=== PATIENT | male | born 1970 | race American Indian/Alaskan Native ===

== ENCOUNTER 2016-11-08 15:53 | Emergency (ER) | payer MEDICAID ==
[2016-11-08 16:04] VITALS: TEMP 97.9
[2016-11-08] MEDS ORDERED: Sodium Chloride 0.9% 1,000 ML IV ONE (16:20)
--- NOTE | 2016-11-08 16:33 | C.PDOC ---
History Of Present Illness 46 y/o male with Hx of HTN, DM and reflux presents to ED with complaints of feeling dizzy and weak with associated numbness feeling to back for 1 week. 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 Patient states he was seen at clinic recently for discharge from penis and had blood work and urine labs done. Patient admits to not eating until late today and denies fever,chills, loc, headache, nausea, vomiting or any other complaints at this time. Time Seen by Provider: 11/08/16 16:18 Chief Complaint (Nursing): Weakness/Neurological Deficit History Per: Patient History/Exam Limitations: no limitations Onset/Duration Of Symptoms: Days Current Symptoms Are (Timing): Still Present Activity At Onset Of Symptoms: Walking Possible Causative Factor(s): New Medications, Decreased PO Intake Recent travel outside of the [place]: No Past Medical History Reviewed: Historical Data, Nursing Documentation, Vital Signs Vital Signs: Last Vital Signs Temp 97.9 F 11/08/16 18:01 Pulse 85 11/08/16 18:01 Resp 18 11/08/16 18:01 BP 108/64 11/08/16 18:01 Pulse Ox 97 11/08/16 18:01 - Medical History PMH: HTN Surgical History: Tonsillectomy Family History: States: No Known Family Hx - Social History Hx Alcohol Use: Yes Hx Substance Use: No - Immunization History Hx Influenza Vaccination: No Review Of Systems Except As Marked, All Systems Reviewed And Found Negative. Constitutional: Negative for: Fever, Chills Cardiovascular: Negative for: Chest Pain Respiratory: Negative for: Shortness of Breath Gastrointestinal: Negative for: Nausea, Vomiting Skin: Negative for: Rash Neurological: Positive for: Numbness, Dizziness. Negative for: Headache Physical Exam - Physical Exam Appears: Non-toxic, No Acute Distress Skin: Normal Color, Warm, Dry, No Rash Head: Atraumatic, Normacephalic Eye(s): bilateral: Normal Inspection, PERRL, EOMI Oral Mucosa: Moist Neck: Normal ROM, Supple Chest: Symmetrical Cardiovascular: Rhythm Regular Respiratory: Normal Breath Sounds, No Rales, No Rhonchi, No Wheezing Extremity: Normal ROM, Capillary Refill (<2 seconds) Neurological/Psych: Oriented x3, Normal Speech, Normal Cognition, Normal Motor, Normal Sensation Gait: Steady ED Course And Treatment - Laboratory Results Result Diagrams: 11/08/16 16:44 11/08/16 16:44 Lab Interpretation: Normal ECG: Interpreted By Me ECG Rhythm: Sinus Rhythm ECG Interpretation: Normal Rate From EC O2 Sat by Pulse Oximetry: 98 (RA) Pulse Ox Interpretation: Normal Progress Note: Patient refused CT Head. Treated with IVF NSS. On re- evaluation feeling better, requestd discharge. ambulating with steady gait, neuro intact Reassessment Condition: Improved Medical Decision Making Medical Decision Making: Plan: * CT head * IV fluids Disposition Counseled Patient/Family Regarding: Studies Performed, Diagnosis, Need For Followup - Disposition Disposition: HOME/ ROUTINE Disposition Time: 18:00 Condition: IMPROVED Additional Instructions: Follow up with your PMD Eat 3 meals a day talk to your doctor about taking diet pills Instructions: Weakness (ED) Forms: [facility] (Kazakh), Work Excuse - POA Present On Arrival: None - Clinical Impression Clinical Impression: Weakness - Scribe Statement The provider has reviewed the documentation as recorded by the Shiloibpancho Beasley All medical record entries made by the Shiloibpancho were at my direction and personally dictated by me. I have reviewed the chart and agree that the record accurately reflects my personal performance of the history, physical exam, medical decision making, and the department course for this patient. I have also personally directed, reviewed, and agree with the discharge instructions and disposition.
[2016-11-08 16:47] LABS: BASO % 0.9 % (0.0-2.0); EOS # 0.1 K/uL (0.0-0.7); EOS % 1.9 % (0.0-4.0); HEMATOCRIT 40.5 % (35.0-51.0); LYMPH # 1.7 K/uL (1.0-4.3); LYMPH % 34.1 % (20.0-40.0); MEAN CELL VOLUME 82.2 fL (80.0-94.0); MEAN CORPUSCULAR HEMOGLOBIN 26.8 pg (27.0-31.0); MEAN CORPUSCULAR HGB CONC 32.6 g/dL (33.0-37.0); MEAN PLATELET VOLUME 8.3 fL (7.2-11.7); MONO # 0.6 K/uL (0.0-0.8); MONO % 12.1 % (0.0-10.0); NRBC % 0.1 % (0.0-2.0); RED CELL DISTRIBUTION WIDTH 13.1 % (11.5-14.5); WHITE BLOOD COUNT 4.8 K/uL (4.8-10.8)
[2016-11-08 16:52] LABS: RBC URINE < 1 /hpf (0-3); URINE BACTERIA RARE (<OCC); URINE BILIRUBIN NEGATIVE (NEGATIVE); URINE BLOOD NEGATIVE (NEGATIVE); URINE COLOR Yellow (YELLOW); URINE GLUCOSE (UA) NORMAL (Normal); URINE KETONE NEGATIVE (NEGATIVE); URINE LEUKOCYTE ESTERASE NEG Leu/uL (Negative); URINE PROTEIN NEGATIVE (NEGATIVE); URINE UROBILINOGEN NORMAL mg/dL (0.2-1.0)
[2016-11-08 16:56] LABS: CHLORIDE 100 mmol/L (98-107); SODIUM 138 mmol/L (132-148)
[2016-11-08 16:59] LABS: ALB/GLOB RATIO 1.1 (1.0-2.1); ALKALINE PHOSPHATASE 51 U/L (38-126); ALT/SGPT 49 U/L (21-72); AST/SGOT 32 U/L (17-59); BLOOD UREA NITROGEN 9 mg/dL (9-20); CALCIUM 9.3 mg/dl (8.6-10.4); CARBON DIOXIDE 28 mmol/L (22-30); GFR AFRICAN-AMERICAN > 60; GLUCOSE,RANDOM 124 mg/dL (75-110); TOTAL PROTEIN 7.6 g/dL (6.3-8.3)
[2016-11-08 18:03] VITALS: BP 108/64; PULSE 85; RESP 18
[2016-11-08 18:05] VITALS: O2SAT 98
--- NOTE | 2016-11-11 18:09 | CARD ---
APPROVED REPORT EKG Measurement Heart [id number] VT 168P33 [id number] <Conclusion> Normal sinus rhythm Normal ECG
== END 2016-11-08 18:00 | disposition home or self-care (01) ==
LOC: C.ER 15:53
DX: R53.1 Weakness (principal)

== ENCOUNTER 2016-11-13 21:56 | Emergency (ER) | payer MEDICAID ==
[2016-11-13 22:19] VITALS: TEMP 98.4
--- NOTE | 2016-11-14 02:39 | C.PDOC ---
History Of Present Illness 46 year old male who presents to the ER with a complaint of weakness and dizziness that began tonight. Patient denies LOC, chest pain, or SOB. Chief Complaint (Nursing): Dizziness/Lightheaded History Per: Patient History/Exam Limitations: no limitations Onset/Duration Of Symptoms: Hrs Current Symptoms Are (Timing): Still Present Seizure Or Post-ictal Symptoms: None Possible Causative Factor(s): Other (Not known) Recent travel outside of the [place]: No - Symptoms Of CVA Associated Symptoms: denies: Impaired Speech, Seizure Activity, New Vision Deficit(Left), New Vision Deficit(Right), Decreased Ability To Walk, New Confusion Past Medical History Reviewed: Historical Data, Nursing Documentation, Vital Signs Vital Signs: Last Vital Signs Temp 98.4 F 11/13/16 22:16 Pulse 75 11/13/16 22:16 Resp 16 11/13/16 22:16 BP 122/80 11/13/16 22:16 Pulse Ox 98 11/14/16 04:46 - Medical History PMH: HTN Surgical History: Tonsillectomy Family History: States: Unknown Family Hx - Social History Hx Alcohol Use: Yes Hx Substance Use: No - Immunization History Hx Influenza Vaccination: No Review Of Systems Constitutional: Positive for: Weakness. Negative for: Fever, Chills Cardiovascular: Negative for: Chest Pain, Palpitations Gastrointestinal: Negative for: Nausea, Vomiting Neurological: Positive for: Dizziness. Negative for: Seizures, Other (LOC) Physical Exam - Physical Exam Appears: Non-toxic, Other (Alert, Conscious) Skin: Normal Color, Warm, Dry Head: Atraumatic, Normacephalic Oral Mucosa: Moist Chest: Symmetrical, No Tenderness Cardiovascular: Rhythm Regular, No Murmur Respiratory: Normal Breath Sounds, No Rales, No Rhonchi, No Wheezing Gastrointestinal/Abdominal: Soft, No Tenderness Neurological/Psych: Oriented x3, Normal Speech, Normal Cognition, Other (No focal deficits) ED Course And Treatment - Laboratory Results Result Diagrams: 11/14/16 02:54 11/14/16 02:54 ECG: Interpreted By Me, Viewed By Me ECG Rhythm: Sinus Rhythm ECG Interpretation: Normal, No Acute Changes Interpretation Of ECG: NSR, normal tracings Rate From EC O2 Sat by Pulse Oximetry: 98 (Room air) Pulse Ox Interpretation: Normal Progress Note: EKG and blood work ordered. Disposition Counseled Patient/Family Regarding: Diagnosis - Disposition Referrals: [facility] [Outside] Disposition: HOME/ ROUTINE Disposition Time: 04:43 Condition: STABLE Prescriptions: Potassium Chloride [K-Dur 20] 20 meq PO BID #20 tab Instructions: Hypokalemia (DC) Forms: [employer] [facility] (Italian) - POA Present On Arrival: None - Clinical Impression Clinical Impression: Hypokalemia, Hypokalemia due to loss of potassium - Scribe Statement The provider has reviewed the documentation as recorded by the Scribpancho Campos All medical record entries made by the Shiloibpancho were at my direction and personally dictated by me. I have reviewed the chart and agree that the record accurately reflects my personal performance of the history, physical exam, medical decision making, and the department course for this patient. I have also personally directed, reviewed, and agree with the discharge instructions and disposition.
[2016-11-14 03:00] LABS: BASO # 0.1 K/uL (0.0-0.2); BASO % 1.3 % (0.0-2.0); EOS # 0.2 K/uL (0.0-0.7); EOS % 3.6 % (0.0-4.0); HEMATOCRIT 41.2 % (35.0-51.0); LYMPH # 2.6 K/uL (1.0-4.3); LYMPH % 44.2 % (20.0-40.0); MEAN CELL VOLUME 83.1 fL (80.0-94.0); MEAN CORPUSCULAR HEMOGLOBIN 26.1 pg (27.0-31.0); MEAN CORPUSCULAR HGB CONC 31.5 g/dL (33.0-37.0); MEAN PLATELET VOLUME 8.4 fL (7.2-11.7); MONO # 0.6 K/uL (0.0-0.8); MONO % 10.6 % (0.0-10.0); NRBC % 0.1 % (0.0-2.0); RED CELL DISTRIBUTION WIDTH 13.2 % (11.5-14.5); WHITE BLOOD COUNT 5.9 K/uL (4.8-10.8)
[2016-11-14 03:13] LABS: CHLORIDE 100 mmol/L (98-107); POTASSIUM 3.4 mmol/L (3.6-5.2); SODIUM 143 mmol/L (132-148)
[2016-11-14 03:15] LABS: AST/SGOT 28 U/L (17-59); BILIRUBIN,TOTAL 0.7 mg/dL (0.2-1.3); CARBON DIOXIDE 26 mmol/L (22-30); GFR AFRICAN-AMERICAN > 60
[2016-11-14 03:16] LABS: ALKALINE PHOSPHATASE 52 U/L (38-126); ALT/SGPT 44 U/L (21-72); BLOOD UREA NITROGEN 10 mg/dL (9-20); CALCIUM 9.4 mg/dl (8.6-10.4); GLUCOSE,RANDOM 95 mg/dL (75-110); TOTAL PROTEIN 7.6 g/dL (6.3-8.3)
[2016-11-14] MEDS ORDERED: Potassium Chloride 20 mEq ER Tab PO STA (04:39)
[2016-11-14] MEDS ORDERED: Potassium Chloride 20 mEq ER Tab PO ONE (04:44)
[2016-11-14 05:07] VITALS: BP 112/74; PULSE 68; RESP 20; O2SAT 100
--- NOTE | 2016-11-14 20:10 | CARD ---
APPROVED REPORT EKG Measurement Heart [id number] VT 208P38 [id number] <Conclusion> Normal sinus rhythm Normal ECG
== END 2016-11-14 05:07 | disposition home or self-care (01) ==
LOC: C.ER 21:56
DX: E87.6 Hypokalemia (principal)

== ENCOUNTER 2016-11-29 02:53 | Emergency (ER) | payer MEDICAID ==
[2016-11-29 04:48] LABS: BASO # 0.1 K/uL (0.0-0.2); BASO % 1.3 % (0.0-2.0); EOS # 0.2 K/uL (0.0-0.7); EOS % 4.1 % (0.0-4.0); HEMATOCRIT 37.9 % (35.0-51.0); LYMPH # 2.1 K/uL (1.0-4.3); LYMPH % 42.4 % (20.0-40.0); MEAN CELL VOLUME 82.2 fL (80.0-94.0); MEAN CORPUSCULAR HEMOGLOBIN 27.4 pg (27.0-31.0); MEAN CORPUSCULAR HGB CONC 33.3 g/dL (33.0-37.0); MEAN PLATELET VOLUME 7.9 fL (7.2-11.7); MONO # 0.7 K/uL (0.0-0.8); MONO % 13.1 % (0.0-10.0); NRBC % 0.2 % (0.0-2.0); RED CELL DISTRIBUTION WIDTH 13.4 % (11.5-14.5)
[2016-11-29 05:03] LABS: ALKALINE PHOSPHATASE 51 U/L (38-126); ALT/SGPT 47 U/L (21-72); AST/SGOT 26 U/L (17-59); BILIRUBIN,TOTAL 0.5 mg/dL (0.2-1.3); BLOOD UREA NITROGEN 10 mg/dL (9-20); CALCIUM 8.8 mg/dl (8.6-10.4); CARBON DIOXIDE 24 mmol/L (22-30); CHLORIDE 103 mmol/L (98-107); GFR AFRICAN-AMERICAN > 60; GLUCOSE,RANDOM 105 mg/dL (75-110); POTASSIUM 3.2 mmol/L (3.6-5.2); SODIUM 141 mmol/L (132-148)
[2016-11-29] MEDS ORDERED: Potassium Chloride 20 mEq ER Tab PO STA (05:31)
--- NOTE | 2016-11-29 05:36 | C.PDOC ---
History Of Present Illness 46 y/o male presents to ER with c/o of persistent headache since last night with dizziness. Pt reports elevated BP at home twice BP about 159/101. 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.Now pt denies H/A, dizziness, CP, SOB, palpitations or visual c/o Time Seen by Provider: 11/29/16 03:20 Chief Complaint (Nursing): Headache History Per: Patient History/Exam Limitations: no limitations Severity: None Preceeding Symptoms: denies: Visual Disturbances Associated Symptoms: denies: Photophobia, Blurred Vision, Vomiting, Extremity Weakness Past Medical History Vital Signs: Last Vital Signs Temp 98 F 11/29/16 03:03 Pulse 72 11/29/16 03:03 Resp 20 11/29/16 03:03 BP 125/77 11/29/16 03:03 Pulse Ox 95 11/29/16 03:03 - Medical History PMH: HTN, Sleep Apnea Surgical History: Tonsillectomy Family History: States: Unknown Family Hx - Social History Hx Alcohol Use: Yes Hx Substance Use: No - Immunization History Hx Tetanus Toxoid Vaccination: No Hx Influenza Vaccination: No Hx Pneumococcal Vaccination: No Review Of Systems Constitutional: Negative for: Fever Eyes: Negative for: Vision Change Cardiovascular: Positive for: Light Headedness (resolvec). Negative for: Chest Pain, Palpitations Respiratory: Negative for: Shortness of Breath Neurological: Positive for: Headache (resolved). Negative for: Weakness, Numbness, Altered Mental Status Physical Exam - Physical Exam Appears: Well, Non-toxic, No Acute Distress Skin: Normal Color Head: Atraumatic Eye(s): bilateral: Normal Inspection, PERRL, EOMI Neck: Normal Chest: Symmetrical Cardiovascular: Rhythm Regular, No Murmur Respiratory: Normal Breath Sounds, No Rales, No Wheezing Gastrointestinal/Abdominal: Normal Exam Extremity: Normal ROM, No Pedal Edema Neurological/Psych: Oriented x3, Normal Speech, Normal Cognition, Normal Motor, Normal Sensation Gait: Steady ED Course And Treatment - Laboratory Results Result Diagrams: 11/29/16 04:45 11/29/16 04:45 ECG: Interpreted By Me ECG Rhythm: Sinus Rhythm (at 68) O2 Sat by Pulse Oximetry: 95 Pulse Ox Interpretation: Normal Progress Note: Labs ordered, pt with decr K+, K dur ordered. 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 Pt advised to follow up with PMD for for BP management and reevaluation Reevaluation Time: 05:40 Reassessment Condition: Improved Disposition Counseled Patient/Family Regarding: Diagnosis, Need For Followup, Rx Given - Disposition Referrals: [facility] [Outside] Disposition: HOME/ ROUTINE Disposition Time: 05:41 Condition: STABLE Additional Instructions: Follow up with PMD for reevaluation and BP management Return to ER if worse Instructions: Acute Headache (ED) Forms: [employer] (Greek) - Clinical Impression Clinical Impression: Headache, Hypokalemia
[2016-11-29] MEDS ORDERED: Potassium Chloride 20 mEq ER Tab PO ONE (05:45)
[2016-11-29 05:53] VITALS: BP 105/67; PULSE 62; RESP 18; TEMP 97.9; O2SAT 96
--- NOTE | 2016-11-30 17:58 | CARD ---
APPROVED REPORT EKG Measurement Heart [id number] [place] 186P30 [id number] <Conclusion> Normal sinus rhythm Nonspecific intraventricular conduction delay Borderline ECG
== END 2016-11-29 05:55 | disposition home or self-care (01) ==
LOC: C.ER 02:53
DX: E87.6 Hypokalemia (principal); R51 Headache